=== PATIENT | female | born 1995 | race Caucasian/White ===

== ENCOUNTER 2025-04-10 16:46 | Emergency (ER) | payer OTHER ==
[2025-04-10 18:10] LABS: #Basophils 0.04 10x3/uL (0.0-0.2); #Eosinophils 0.13 10x3/uL (0.0-0.5); #Monocytes 0.59 10x3/uL (0.0-1.1); #Neutrophils 7.69 10x3/uL (1.5-8.4); %Basophils 0.4 % (0.0-2.0); %Eosinophils 1.2 % (0.0-6.0); %Lymphocytes 22.1 % (18.0-47.0); %Monocytes 5.4 % (0.0-10.0); %Neutrophils 70.4 % (40.0-75.0); Hematocrit 38.4 % (34.9-44.5); Hemoglobin 13.2 g/dL (12.0-15.5); Mean Corpuscular Hemoglobin 29.2 pg (27.0-33.0); Mean Corpuscular Volume 85.0 fL (81.6-98.3); Platelet Count 328 10x3/uL (150-450); Red Blood Cell (RBC) Count 4.52 10x6/uL (3.90-5.03); White Blood Cell (WBC) Count 10.91 10x3/uL (3.5-10.5)
[2025-04-10 18:16] LABS: Glucose, Urine (Dipstick) Normal (Negative); Leukocyte Negative (Negative); Protein, Urine (Dipstick) 15 mg/dl (Neg-Trace); Specific Gravity, Urine 1.020 (1.005-1.030)
[2025-04-10 18:28] LABS: ALT (SGPT) 16 U/L (Less than 34); AST (SGOT) 22 U/L (11-34); Albumin 3.9 g/dL (3.1-4.5); Alkaline Phosphatase 60 U/L (40-110); Anion Gap 14 mmol/L (10-20); BUN (Urea Nitrogen) 9 mg/dL (7.0-18.7); Bilirubin, Total 0.1 mg/dL (0.3-1.2); Calc. Creatinine Clearance 0 mL/min (70-130); Calcium 8.9 mg/dL (7.8-10.44); Carbon Dioxide 18 mmol/L (22-29); Chloride 109 mmol/L (98-107); Globulin 3.6 g/dL (2.4-3.5); Glucose 101 mg/dL (70-105); Magnesium 1.7 mg/dL (1.6-2.6); Potassium 3.3 mmol/L (3.5-5.1); Sodium 138 mmol/L (136-145)
[2025-04-10] MEDS ORDERED: Potassium Bicarbonate/Cit Ac 20 MEQ TAB ONE (18:53)
[2025-04-10 19:02] LABS: Bacteria/HPF 2+ HPF (None Seen); CAUTI Indications for Culture Pregnancy; RBC/HPF 0-3 HPF (0-3); WBC/HPF 0-3 HPF (0-3)
[2025-04-10 19:03] LABS: Mucous/LPF 2+ LPF (<2+)
[2025-04-10 19:04] LABS: Urine Culture Reflex Yes Yes
== END 2025-04-10 19:00 | disposition home or self-care (01) ==
LOC: CSHERS 16:46
DX: O26.812 Pregnancy related exhaustion and fatigue, second trimester (principal); O99.891 Other specified diseases and conditions complicating pregnancy; E87.6 Hypokalemia; Z3A.18 18 weeks gestation of pregnancy
CPT/HCPCS: 36415; 80053; 81001; 83735; 85025; 87086; 93005; 99285

== ENCOUNTER 2025-07-28 12:00 | Inpatient (IN) | payer OTHER ==
[2025-07-28 12:53] VITALS: BMI 38.2
[2025-07-28] MEDS ORDERED: hydrALAZINE 20 MG/ML VIAL SLOW IVP PRN (13:05)
[2025-07-28 13:27] LABS: Fetal Membranes Rupture RUPTURE DETECTED (No Rupture)
[2025-07-28] MEDS ORDERED: Methylergonovine 0.2 MG/ML VIAL IM PRN (14:03)
[2025-07-28] MEDS ORDERED: Ibuprofen 800 MG TAB PO PRN (14:03)
[2025-07-28] MEDS ORDERED: Carboprost 250 MCG/ML AMP IM PRN (14:03)
[2025-07-28] MEDS ORDERED: Tranexamic Acid 1,000 MG/10 ML VIAL IVP PRN (14:03)
[2025-07-28] MEDS ORDERED: Diphenoxylate HCl/Atropine Tablet PO PRN (14:03)
[2025-07-28] MEDS ORDERED: Lidocaine 1% (PF) 30 ML VIAL SC PRN (14:03)
[2025-07-28] MEDS ORDERED: Oxytocin 30 units/NS 500 ML 500 ML IV SCH (14:15)
[2025-07-28] MEDS: Acetaminophen 500 MG TAB PO SCH (15:40)
[2025-07-28 16:22] LABS: Hematocrit 40.9 % (34.9-44.5); Hemoglobin 14.0 g/dL (12.0-15.5); Mean Corpuscular Hemoglobin 29.4 pg (27.0-33.0); Mean Corpuscular Volume 85.7 fL (81.6-98.3); Platelet Count 347 10x3/uL (150-450); Red Blood Cell (RBC) Count 4.77 10x6/uL (3.90-5.03); White Blood Cell (WBC) Count 14.64 10x3/uL (3.5-10.5)
[2025-07-28] MEDS: Penicillin G Potassium 5 MILL.UNITS in Sodium Chloride 0.9% 100 ML IVPB SCH (16:27)
[2025-07-28 17:02] LABS: HIV (1/2) Antibody/Antigen Non-Reactive (NonReactive); HIV 1/2 INDEX 0.18 S/CO (<1.00)
[2025-07-28 17:03] LABS: Syphilis Antibody Index 0.05 S/CO (<1.00 Non-Reactive)
[2025-07-28 17:05] LABS: Hep B Surf Ag - L&D Non-Reactive S/CO (NonReactive)
[2025-07-28] MEDS: Penicillin G 2.5 MILL.units 2.5 MILL.UNITS in Premix 1 BAG IVPB SCH (20:30)
[2025-07-28] MEDS: Acetaminophen 500 MG TAB PO PRN (23:05)
[2025-07-29] MEDS: fentaNYL/Ropivacaine Epidural 100 ML ONE (01:34)
[2025-07-29] MEDS ORDERED: diphenhydrAMINE 50 MG/ML VIAL IVP PRN (02:06)
[2025-07-29] MEDS ORDERED: Ondansetron PF 4 MG/2 ML Vial IVP PRN ×2 (02:06→12:18)
[2025-07-29] MEDS ORDERED: Communication Order-Pharmacy FS SCH (02:15)
[2025-07-29] MEDS ORDERED: fentaNYL 2 mcg/Ropivacaine 0.2% Epidural 100 ML CADD EPIDURAL SCH (02:15)
[2025-07-29] MEDS: Oxytocin 30 units/NS 500 ML 500 ML IV SCH (02:30)
[2025-07-29] MEDS ORDERED: Methylergonovine 0.2 MG/ML VIAL IM PRN (12:18)
[2025-07-29] MEDS ORDERED: Milk Of Magnesia 30 ML UDCUP PO PRN (12:18)
[2025-07-29] MEDS ORDERED: hydrALAZINE 20 MG/ML VIAL SLOW IVP PRN (12:18)
[2025-07-29] MEDS ORDERED: Bisacodyl 10 MG SUPP PR PRN (12:18)
[2025-07-29 12:34] LABS: Analyzer IN Cardio CS NICU; Critical Notified By: clumpkins rt
[2025-07-29 12:37] LABS: Analyzer IN Cardio CS NICU; Critical Notified By: clumpkins rt; pH (Cord, venous) 7.385 (7.250-7.350)
[2025-07-29] MEDS: Ferrous Sulfate 325 MG TAB PO SCH (16:23)
[2025-07-29] MEDS: Ibuprofen 800 MG TAB PO SCH (16:32)
[2025-07-29] MEDS: Acetaminophen 325 MG TAB PO PRN (16:32)
[2025-07-29] MEDS ORDERED: Bupivacaine 0.25% HCL 30 ML VIAL ONE (19:37)
[2025-07-29] MEDS ORDERED: Bupivacaine HCl 0.5%/Epinephrine 1:200,000/PF 30 ml Vial ONE (19:37)
[2025-07-30 01:25] LABS: Group B Streptococcus by PCR DETECTED (NotDetected)
[2025-07-30] MEDS: Cyclobenzaprine 10 MG TAB PO SCH (08:01)
[2025-07-30] MEDS ORDERED: Sertraline 100 MG TAB PO SCH (09:00)
[2025-07-30] MEDS: Ibuprofen 800 MG TAB PO SCH (12:52)
[2025-07-30] MEDS: Sertraline 100 MG TAB PO SCH (20:47)
[2025-07-31 08:17] VITALS: BP 125/65; TEMP 98
== END 2025-07-31 10:20 | disposition home or self-care (01) | DRG 805 ==
LOC: CSHLD/OP 12:00 → CSHERS 12:00 → CSHLD 14:10 → UNDOADMIN 14:10 → CSHPED 07-29 16:00
PROVIDERS: ADMIT Student in an Organized Health Care Education/Training Program; ATTEND Student in an Organized Health Care Education/Training Program
PROC: 3E03329 Introduction of Other Anti-infective into Peripheral Vein, Percutaneous Approach (ICD-10-PCS; 2025-07-28)
PROC: 10E0XZZ Delivery of Products of Conception, External Approach (ICD-10-PCS; principal; 2025-07-29)
PROC: 10H07YZ Insertion of Other Device into Products of Conception, Via Natural or Artificial Opening (ICD-10-PCS; 2025-07-29)
PROC: 3E033XZ Introduction of Vasopressor into Peripheral Vein, Percutaneous Approach (ICD-10-PCS; 2025-07-29)
DX: O42.113 Preterm premature rupture of membranes, onset of labor more than 24 hours following rupture, third trimester (principal); O60.13X0 Preterm labor second trimester with preterm delivery third trimester, not applicable or unspecified; Z37.0 Single live birth; Z3A.34 34 weeks gestation of pregnancy; O99.284 Endocrine, nutritional and metabolic diseases complicating childbirth; E03.9 Hypothyroidism, unspecified; O99.345 Other mental disorders complicating the puerperium; F41.9 Anxiety disorder, unspecified
CPT/HCPCS: 36415; 51702; 82805; 84112; 85027; 86780; 86850; 86900; 86901; 87340; 87389; 87480; 87510; 87653; 87660; 99285; J0665; J2540; J2590; J7120